=== PATIENT | male | born 1950 | race American Indian/Alaskan Native ===

== ENCOUNTER 2022-02-04 21:00 | Emergency (ER) | payer MEDICARE ==
[2022-02-04 21:09] VITALS: BP 102/61
[2022-02-04] MEDS ORDERED: ASPIRIN 325 MG TAB PO ONE (22:37)
[2022-02-04 23:40] LABS: Basophils % (Auto) 0.4 % (0.0-1.8); Eosinophils # (Auto) 0.1 K/mm3 (0.0-0.4); Eosinophils % (Auto) 1.8 % (0.0-4.3); Hematocrit 47.5 % (35.5-45.6); Lymphocytes # (Auto) 1.8 K/mm3 (1.2-5.4); Lymphocytes % (Auto) 29.5 % (13.4-35.0); Mean Corpuscular HGB Conc 32 % (32-34); Mean Corpuscular Volume 84 fl (84-94); Monocytes # (Auto) 0.4 K/mm3 (0.0-0.8); Monocytes % (Auto) 6.1 % (0.0-7.3); Platelet Count 254 K/mm3 (140-440); Red Blood Count 5.65 M/mm3 (3.65-5.03); Red Cell Distribution Width 14.3 % (13.2-15.2)
[2022-02-05 00:03] LABS: Alanine Aminotransferase 13 units/L (7-56); Albumin 4.4 g/dL (3.9-5); BUN/Creatinine Ratio 13; Blood Urea Nitrogen 10 mg/dL (9-20); Hemolysis Index 13
--- NOTE | 2022-02-05 00:22 | XRay Report ---
CHEST 2 VIEWS INDICATION / CLINICAL INFORMATION: CHEST PAIN x4days; tingling in lt fingers,leg and foot, . COMPARISON: None available. FINDINGS: SUPPORT DEVICES: None. HEART / MEDIASTINUM: Heart size and mediastinal contour appear within normal limits. LUNGS / PLEURA: No significant pulmonary or pleural abnormality. No pneumothorax. BONES: No significant osseous abnormality. ADDITIONAL FINDINGS: No significant additional findings. Prior cholecystectomy. IMPRESSION: 1. No active cardiopulmonary disease. Signer Name: Omid Ly II, MD Signed: 02/05/2022 12:17 AM Workstation Name: [id number]
[2022-02-05] MEDS ORDERED: SODIUM POLYSTYRENE 15 GM/60 ML ORAL LIQD PO ONE (11:04)
--- NOTE | 2022-02-05 11:17 | Emergency Department Report ---
ED Chest Pain HPI - General Chief Complaint: Chest Pain Stated Complaint: CHEST PAIN/NUMBNESS TINGLING ON LEFT SIDE Time Seen by Provider: 02/05/22 11:03 Source: patient Mode of arrival: Ambulatory Limitations: No Limitations - History of Present Illness Initial Comments: Patient is a 71-year-old male presenting to ED with complaint of left-sided chest discomfort beginning yesterday with associated tingling in his left arm. He also reports paresthesias in both of his legs and feet. He actually came here yesterday and has been in the waiting room since yesterday evening. Laboratory results are already resulted and essentially unremarkable. He c urrently denies any pain. - Related Data Allergies Allergy/AdvReac Type Severity Reaction Status Date / Time No Known Allergies Allergy Verified 02/04/22 22:36 Heart Score - HEART Score History: Slightly suspicious EKG: Normal Age: > 65 Risk factors: No known risk factors Troponin: < normal limit HEART Score: 2 - EKG Read Time Time EKG Completed: 21:16 EKG Read Time: 21:18 - Critical Actions Critical Actions: 0-3 pts:0.9-1.7%risk of adverse cardiac event.Candidate for discharge ED Review of Systems ROS: Stated complaint: CHEST PAIN/NUMBNESS TINGLING ON LEFT SIDE Other details as noted in HPI Constitutional: denies: chills, fever Respiratory: denies: cough, shortness of breath, wheezing Cardiovascular: chest pain. denies: palpitations Gastrointestinal: denies: abdominal pain, nausea, diarrhea Musculoskeletal: denies: back pain, joint swelling, arthralgia Skin: denies: rash, lesions Neurological: paresthesias. denies: headache, weakness Psychiatric: denies: anxiety, depression Hematological/Lymphatic: denies: easy bleeding, easy bruising ED Physical Exam - General Limitations: No Limitations General appearance: alert, in no apparent distress - Head Head exam: Present: atraumatic, normocephalic - Respiratory Respiratory exam: Present: normal lung sounds bilaterally. Absent: respiratory distress - Cardiovascular Cardiovascular Exam: Present: regular rate, normal rhythm, normal heart sounds - GI/Abdominal GI/Abdominal exam: Present: soft. Absent: distended, tenderness - Rectal Rectal exam: Present: deferred - Extremities Exam Extremities exam: Present: normal inspection. Absent: pedal edema - Neurological Exam Neurological exam: Present: alert, oriented X3 - Psychiatric Psychiatric exam: Present: normal affect, normal mood - Skin Skin exam: Present: warm, dry, intact, normal color ED Course Vital Signs 02/04/22 21:09 Temperature 98.6 F Pulse Rate 97 H Respiratory 18 Rate Blood Pressure 102/61 O2 Sat by Pulse 97 Oximetry ED Medical Decision Making - Lab Data Result diagrams: 02/04/22 23:16 02/04/22 23:16 - EKG Data -: EKG Interpreted by Me EKG shows normal: sinus rhythm, axis, intervals, QRS complexes, ST-T waves Rate: normal - Radiology Data Radiology results: report reviewed No acute cardiopulmonary disease. - Medical Decision Making Patient remains asymptomatic at this time. CBC and CMP are essentially unremarkable except for mildly elevated potassium of 5.2. Patient has normal renal function. His EKG is normal. He is hemodynamically stable. Will give a dose of oral Kayexalate and discharge home. Paresthesias could be due to peripheral vascular disease or less likely vitamin deficiency. Patient instructed to follow-up with PCP within 3 to 5 days. Critical care attestation.: If time is entered above; I have spent that time in minutes in the direct care of this critically ill patient, excluding procedure time. ED Disposition Clinical Impression: Nonspecific chest pain, Paresthesia and pain of both upper extremities, Paresthesia of bilateral legs, Hyperkalemia Disposition: 01 HOME / SELF CARE / HOMELESS Is pt being admited?: No Condition: Stable Instructions: Nonspecific Chest Pain, Adult, Paresthesia, [id number], Hyperkalemia, [id number] Additional Instructions: Please follow-up with your primary care doctor within the next 3 to 5 days to recheck your potassium level and to further discuss your symptoms of tingling in your hands and feet as this could be due to multiple factors including vitamin deficiency or peripheral vascular disease. If you experience recurrence of your chest pain please do not hesitate to return for reevaluation. Time of Disposition: 11:20
--- NOTE | 2022-02-06 15:13 | Electrocardiograph Report ---
[facility] Test Date: 2022-02-04 Test Time: 21:16:13 Pat Name: MICHELLE SUAREZ Department: Room: Gender: M [employer] Work[employer]: MICHAEL : 1950 Requested By: ED DOC Order Number: [id number] Reading MD: Kwaku Sheth Measurements Intervals [place] Rate: 86 P: 78 HI: 142 QRS: 86 QRSD: 96 T: 30 QT: 365 QTc: 438 Interpretive Statements Sinus rhythm No previous ECG available for comparison Electronically Signed On 02-06-2022 15:13:38 EDT by Kwaku Sheth
== END 2022-02-05 14:19 | disposition home or self-care (01) ==
LOC: ED 21:00
DX: R07.9 Chest pain, unspecified (principal); R20.2 Paresthesia of skin; E87.5 Hyperkalemia
CPT/HCPCS: 36415; 71046; 80053; 84484; 85025; 93005; 99283; 99284